=== PATIENT | female | born 1990 | race Caucasian/White ===

== ENCOUNTER 2025-04-08 07:27 | Emergency (ER) | payer MEDICAID ==
[~2025-04-08] VITALS: Ht 165.1 cm; Wt 90.0 kg
[2025-04-08 07:35] VITALS: O2SAT 100
[2025-04-08 08:32] LABS: CLARITY URINE CLEAR (CLEAR); COLOR URINE YELLOW (YELLOW); GLUCOSE URINE NEGATIVE (NEGATIVE); KETONES URINE 1+ (NEGATIVE); LEUKOCYTE ESTERASE URINE 2+ (NEGATIVE); NITRITE URINE NEGATIVE (NEGATIVE); OCCULT BLOOD URINE NEGATIVE (NEGATIVE); PH URINE 6.0 (4.5-8.0); PROTEIN URINE NEGATIVE (NEGATIVE); SPECIFIC GRAVITY URINE 1.013 (1.005-1.030); UROBILINOGEN URINE 0.2 E.U./dL (0.2-1.0)
[2025-04-08 08:36] LABS: BASOPHILS % 0.6 % (0.0-2.0); EOSINOPHILS % 0.4 % (0.0-5.0); HEMATOCRIT. 36.1 % (36.0-48.0); HEMOGLOBIN. 11.9 g/dL (12.0-16.0); LYMPHOCYTES % 23.5 % (20.0-50.0); MEAN PLATELET VOLUME 8.5 fl (7.4-10.4); MONOCYTES % 4.0 % (2.0-8.0); NEUTROPHILS % 71.5 % (40.0-76.0); PLATELET 363 x1000/uL (130-400); RED BLOOD CELL COUNT 4.60 mill/uL (4.2-5.4); RED CELL DISTRIBUTION WIDTH 18.1 % (11.6-14.6)
[2025-04-08 08:46] LABS: CREATININE 0.8 mg/dL (0.6-1.0)
[2025-04-08 08:47] LABS: ETHANOL BLOOD < 10 mg/dL (<10); UREA NITROGEN BLOOD 10 mg/dL (9-23)
[2025-04-08 08:57] LABS: *AMPHETAMINES SCREEN URINE NEGATIVE (NEGATIVE); *BARBITURATES SCREEN URINE NEGATIVE (NEGATIVE); *BENZODIAZEPINES SCREEN URINE NEGATIVE (NEGATIVE); *COCAINE SCREEN URINE NEGATIVE (NEGATIVE); CANNABINOID URINE SCREEN NEGATIVE (NEGATIVE); ECSTASY MDMA SCREEN URINE NEGATIVE (NEGATIVE); METHADONE URINE SCREEN NEGATIVE (NEGATIVE); OPIATES URINE SCREEN NEGATIVE (NEGATIVE); PHENCYCLIDINE URINE SCREEN NEGATIVE (NEGATIVE)
[2025-04-08 09:06] LABS: MUCUS URINE 2+ /lpf (< = 2+); SQUAMOUS EPITHELIAL CELL URINE 2+ /lpf (RARE/1+)
[2025-04-08 09:07] LABS: BACTERIA URINE 2+; CALCIUM OXALATE CRYSTALS URINE 1+ /lpf; RBC URINE 0-2 /hpf (0-2)
[2025-04-08 09:09] LABS: HCG SCREEN NEGATIVE
[2025-04-08] MEDS: QUETIAPINE FUMARATE 50MG TABLET PO SCH (12:42)
[2025-04-08] MEDS: ACETAMINOPHEN 325MG TABLET PO ONE (12:43)
[2025-04-08] MEDS: OLANZAPINE 10 MG/VIAL IM ONE (16:04)
[2025-04-08] MEDS: HALOPERIDOL LACTATE 5MG/ML VIAL IM ONE (20:37)
[2025-04-09] MEDS: KETOROLAC 30MG/ML VIAL IM ONE (06:08)
[2025-04-09] MEDS: LORAZEPAM 1MG TABLET PO ONE (06:09)
[2025-04-09 08:00] VITALS: BP 106/72; PULSE 62; RESP 20; TEMP 36.5
[2025-04-09 12:00] VITALS: BP 116/78; PULSE 60; RESP 17; TEMP 36.6; O2SAT 99
[2025-04-09 16:00] VITALS: BP 124/75; PULSE 74; RESP 21; TEMP 36.7; O2SAT 98
[2025-04-09 19:51] VITALS: BP 117/71; PULSE 81; RESP 18; TEMP 36.9; O2SAT 99
== END 2025-04-09 20:48 ==
LOC: ER 07:27
DX: R45.850 Homicidal ideations (principal); F31.9 Bipolar disorder, unspecified; Z79.899 Other long term (current) drug therapy; Z20.822 Contact with and (suspected) exposure to COVID-19; Z02.89 Encounter for other administrative examinations; Z91.040 Latex allergy status
CPT/HCPCS: 80305; 80048; 81003; 80320; 84703; 85025; 36415; 96372 ×2; 99285; 87426; Z7610 ×2; J3490; J1630; J1885; G0480